=== PATIENT | female | born 1995 | race Caucasian/White ===

== ENCOUNTER 2020-11-16 20:51 | Emergency (ER) | payer OTHER ==
[2020-11-16 22:26] LABS: ALBUMIN 3.7 g/dL (3.4-5.0); BILIRUBIN - TOTAL 0.5 mg/dL (0.2-1.0); BUN/CREAT RATIO (CALC) 16.1 RATIO; CREATININE 0.62 mg/dL (0.51-0.95); GLOBULIN (CALCULATION) 3.7 g/dL; POTASSIUM 3.7 mmol/L (3.5-5.1); TOTAL PROTEIN 7.4 g/dL (6.4-8.2)
[2020-11-16 22:45] LABS: BASOPHIL 0.4 % (0-2); EOSINOPHIL 0.1 % (0-5); HCT 38.3 % (37.0-47.0); HGB 13.6 g/dl (12.5-16.0); LYMPHOCYTE 15.7 % (15-48); MCH 30.7 pg (25.0-31.0); MCHC 35.5 g/dL (32.0-36.0); MCV 86.5 fL (78.0-100.0); MONOCYTE 4.2 % (0-12); MPV 11.2 fL (6.0-9.5); NEUTROPHIL 79.2 % (41-80); NRBC 0; PLT 160 K/uL (150-400); RBC 4.43 M/uL (4.20-5.40); RDW 12.6 % (11.5-14.0); WBC 10.7 K/uL (4.0-10.5)
== END 2020-11-16 23:08 | disposition home or self-care (01) ==
LOC: FER 20:51
PROVIDERS: Nurse Practitioner Family
DX: O99.281 Endocrine, nutritional and metabolic diseases complicating pregnancy, first trimester (principal); E86.0 Dehydration; Z3A.09 9 weeks gestation of pregnancy; Z87.442 Personal history of urinary calculi
CPT/HCPCS: 36415; 80053; 85025; J2405; J7030